=== PATIENT | male | born 1945 | race Caucasian/White ===

== ENCOUNTER 2024-11-26 15:30 | Outpatient (RCR) | payer MEDICARE, SELFPAY | END 2024-11-27 08:57 | disposition home or self-care (01) | PROVIDERS: Visit Provider Surgery | DX: M54.50 Low back pain, unspecified (principal); G89.29 Other chronic pain; R29.898 Other symptoms and signs involving the musculoskeletal system; Z51.89 Encounter for other specified aftercare | CPT/HCPCS: 97110; 97112; 97140; 97161; 97530 ==